=== PATIENT | male | born 1995 | race Caucasian/White ===

== ENCOUNTER 2025-04-24 20:35 | Emergency (ER) | payer OTHER, SELFPAY ==
[2025-04-24 20:38] VITALS: BP 185/107
[2025-04-24 20:57] VITALS: BP 183/84
[2025-04-24 21:00] VITALS: BP 169/94
[2025-04-24 21:32] LABS: Hematocrit 43.1 % (39.0-52.0); Hemoglobin 14.8 g/dL (13.0-18.0); Mean Corp Hgb Conc. 34.3 g/dL (33.0-37.0); Mean Corpuscular Volume 86.4 fL (80.0-94.0); Nucleated Red Blood Cells % 0 % (-); Platelet Count 261 10^3/uL (130-400); Red Cell Dist. Width 12.2 % (11.5-14.5)
[2025-04-24 21:54] LABS: ALT (SGPT) 48 U/L (0-50); AST (SGOT) 28 U/L (17-59); Albumin 4.6 g/dl (3.5-5.0); Alkaline Phosphatase 72 U/L (38-126); Blood Urea Nitrogen 11 mg/dl (9-20); Calcium 9.3 mg/dl (8.4-10.2); Carbon Dioxide 29 mmol/L (22-30); Chloride 104 mmol/L (98-107); Glucose 143 mg/dl (70-99); Potassium 4.1 mmol/L (3.5-5.1); Sodium 139 mmol/L (135-145); Total Protein 7.3 g/dl (6.3-8.2); eGFR > 60.00
--- NOTE | 2025-04-24 21:58 | ED.GENMED ---
History of Present Illness
General
Chief Complaint: Chest Pain
Source: patient and family
Exam Limitations: none
Time Seen by Provider: 04/24/25 21:18
Nursing documentation reviewed up to this point in time: agreed with
History of Present Illness
History of Present Illness:
Patient is a 29-year-old healthy male who presents the emergency department for evaluation of chest pain which started a few hours prior to arrival. Patient states that he was a passenger in a car when he had a somewhat sudden onset pain described
as burning in the substernal area of his chest. He denies any radiation to his shoulder, back, jaw. He did feel very minimally short of breath at the time. There was no exertional or pleuritic component to symptoms. Patient states symptoms
persisted for 1 to 2 hours however by my evaluation�his symptoms have almost resolved completely.
His family member who was in the car at the same time states that he looked sweaty and uncomfortable.
Patient denies any associated nausea, vomiting, lightheadedness/dizziness. He states they were at the movie theater earlier today and had popcorn.
Patient has no personal or family history of blood clots/clotting disorders or known cardiac disease. He is not on any exogenous hormone use. No recent travel or recent surgeries.
Review of Systems
Review of Systems
Allergies reviewed?: Yes
All Other Systems: ROS reviewed and negative except as documented in HPI and ROS
Phy Exam
Physical Exam
Physical Exam:
Vitals: Hypertensive, otherwise vital signs stable. Afebrile
General: Patient is well appearing, no acute distress
Skin: Warm and dry, no rashes or lesions
Head: Normocephalic, atraumatic
Eyes: Sclera nonicteric.
Throat: Protecting airway
Neck: Normal ROM, no cervical spine tenderness, no meningismus
Cardiac: Regular rate and rhythm, no murmurs. No reproducible chest wall tenderness
Pulm: Normal respiratory effort, no wheezes, rales, rhonchi heard on exam
Abdomen: Abdomen soft and nontender.
Extremities: No evidence of cyanosis or edema. No tenderness or erythema of the lower extremities. Negative Homans' sign bilaterally.
Neuro: AAOx3. Grossly intact.
Psychiatric: Normal affect.
Scores
Heart Score for Chest Pain Patients
STEMI patient?: Not applicable
PERC Rule Criteria
Age <50 years: Yes
HR <100 bpm: Yes
Room air oxygen sat >94%: Yes
History of DVT or PE: No
Recent trauma or surgery: No
Hemoptysis: No
Exogenous estrogen: No
Clinical signs suggestive of DVT: No
: No
Considered low risk for PE: Yes
PERC Score: 0
PE can be excluded by PERC: Yes
Course
Orders/Labs/Results
Orders:
Orders
04/24/25
Electrocardiogram (*1) Stat
Reason for Study: Chest Pain
Comment: DONE NO ORDER ENTERED
04/24/25 21:11
Cardiac Monitoring- Treatment ONCE
IV Insert/Care/Rem.- Treatment PRN
04/24/25 21:22
Complete Blood Count/With Diff Urgent
Comprehensive Metabolic Panel Urgent
NT-proBNP Urgent
Troponin I Urgent
04/24/25 21:59
CR Chest - 2 Views Urgent
Comment:
Reason For Exam: Chest pain
04/25/25 00:29
Troponin I Urgent
04/25/25 00:30
Electrocardiogram (*1) Urgent
Reason for Study: Chest Pain
04/25/25 12:30
EKG- Treatment ONCE
Abnormal Lab Results
04/24/25
21:22
WBC 12.1 H 10^3/uL
(4.8-10.8)
Abs Immat Gran (auto) 0.1 H 10^3/uL
(0-0.05)
Absolute Lymphs (auto) 4.2 H 10^3/uL
(1.2-3.4)
Absolute Monos (auto) 1.2 H 10^3/uL
(0.1-0.6)
Absolute Eos (auto) 0.9 H 10^3/uL
(0-0.7)
Monocytes % 9.5 H %
(1.7-9.3)
Eosinophils % 7.0 H %
(0-6)
Glucose 143 H mg/dl
(70-99)
04/24/25 21:22
04/24/25 21:22
Vital Signs
Initial and Last Documented VS:
Initial Vital Signs
Temp Pulse Resp BP Pulse Ox
97.5 F 74 17 185/107 99
04/24/25 20:38 04/24/25 20:38 04/24/25 20:38 04/24/25 20:38 04/24/25 20:38
Last Documented Vital Signs
Temp Pulse Resp BP Pulse Ox
97.5 F 64 17 134/80 97
04/24/25 20:38 04/25/25 02:05 04/25/25 02:05 04/25/25 02:05 04/25/25 02:05
MDM/Problems Addressed
Differential Diagnosis Includes:
Not limited to: GERD, pericarditis, muscle strain, acute coronary syndrome, pneumothorax, etc.
MDM/Problems Addressed:
29-year-old healthy male presenting with substernal chest burning occurring while seated in a car earlier today. He did experience mild shortness of breath briefly and there was a report of possible diaphoresis. He denies radiation of pain or
exertional/pleuritic component. No PE risk factors. Physical exam as above. Initial EKG reveals normal sinus rhythm without acute ischemic changes. Differential includes GERD, muscle strain, pericarditis. Symptoms do not seem anginal in nature �
lower suspicion for acute coronary syndrome. Patients vital signs not reflective of PE and he has a PERC score of zero � do not suspect pulmonary embolism.
Plan: labs, serial troponins, chest x-ray. At this time � symptoms resolved and patient does not require pain medication.
Update: labs without clinically significant abnormalities. Troponin negative x 2. Chest x-ray without acute findings. On reassessment, patient is stable and symptoms have remained resolved throughout duration of time in emergency department. Given
negative workup and resolution of symptoms, very low suspicion for acute coronary syndrome or other acute cardiac emergency. At this point � feel stable for discharge home with primary care follow up. Patient and patients family comfortable with
plan. Return precautions discussed.
Chronic conditions affecting care:
N/A
Acute Exacerbation and/or Progression of Chronic Illness:
N/A
*Radiology
Radiology exam reviewed: preliminary read by ED provider (Chest x-ray reviewed by me-no acute abnormalities) and radiology read reviewed
*Pulse Oximetry
SaO2: 96
Oxygen Mode of Delivery: Room air
Patient hypoxic: no
*EKG
Interpreted by ED Provider?: Yes
EKG Intrepretation Date: 04/25/25
Interpretation: abnormal
Comparison EKG: no changes
Heart Rate: 71
Rate: normal
Rhythm: sinus
Long Bottom: normal axis
Interval: normal QT interval
QRS Pattern: normal QRS
Ischemia: no ischemia
*[employer] Interpretation
Rate: normal
Interpretation: normal
Heart Rate: 68
Rhythm: sinus
*Critical Care Note
Total Time (30-74mins, 75-104mins- exclusive of procedures): Not Applicable
ED Attending Note
-
Portions of this chart may have been created with voice recognition software.� Occasional wrong word or��sound alike� substitutions may have occurred due to the inherent limitations of voice recognition software.
Discharge Plan
Departure
Patient Disposition: Home (Routine Discharge)
Date of Disposition: 04/25/25
Time of Disposition: 01:33
Patient with high blood pressure during this ER visit?: Yes
Condition: Good
Discharge Problem:
Chest pain
Instructions: Chest Pain PCP Follow Up, BLOOD PRESSURE
Prescriptions:
No Action
No Current Medications
0
Referrals:
Aileen Palomares NP [Family Provider, Family Practice] - Follow up in 2-3 days
Activity Restrictions/Additional Instructions:
RETURN TO THE EMERGENCY DEPARTMENT ANY CHEST PAIN, SHORTNESS OF BREATH/DIFFICULTY BREATHING, ANY CHEST PAIN RELATED TO EXERTIONAL ACTIVITIES, OR ASSOCIATED LIGHTHEADEDNESS, SWEATING, NAUSEA, OR ANY OTHER CONCERNS
- As discussed�your lab work including cardiac enzymes showed no acute abnormalities. Your EKG showed no acute findings. Your chest x-ray was normal.
- It is important stay well-hydrated.
- Follow-up with your primary care provider for further evaluation/management and to ensure that your symptoms improve
Monitor your symptoms closely and return to the emergency department with any acute worsening/new symptoms or any other concerns
Interventions
Interventions:
*Risk Screen - Suicide Last Done: 04/24/25 20:39
*General Assessment Last Done: 04/24/25 20:39
*Neglect/Abuse Screening Last Done: 04/24/25 20:39
*ED- Fall Risk Assessment Last Done: 04/25/25 02:05
*ED COVID-19 Vaccine History Last Done: 04/24/25 20:39
*Nursing Disposition Last Done: 04/25/25 02:05
ED- Cardiac Assessment Last Done: 04/24/25 21:05
Discharge Date and Time
Discharge Date/Time: 04/25/25 02:05
Print Language: ITALIAN
[2025-04-24 22:00] VITALS: BP 145/80
[2025-04-24 22:06] LABS: Troponin I < 0.012 ng/ml
[2025-04-25 00:26] VITALS: BP 141/82
[2025-04-25 01:07] LABS: Troponin I < 0.012 ng/ml
[2025-04-25 02:00] VITALS: BP 134/80
[2025-04-25 02:05] VITALS: BP 134/80
== END 2025-04-25 02:05 | disposition home or self-care (01) ==
LOC: EMR 20:35
PROVIDERS: Physician Assistant; EMERGENCY PHYSICIAN Emergency Medicine; FAMILY PHYSICIAN Nurse Practitioner Adult Health
DX: R07.9 Chest pain, unspecified (principal); R03.0 Elevated blood-pressure reading, without diagnosis of hypertension
CPT/HCPCS: 99284; 71046; 80053; 83880; 84484; 85025; 93005